=== PATIENT | male | born 1990 | race Caucasian/White ===

== ENCOUNTER 2018-12-20 09:57 | Emergency (ER) | payer SELFPAY ==
[~2018-12-20] VITALS: Ht 175.2 cm; Wt 95.3 kg
[2018-12-20] MEDS ORDERED: TOBRAMYCIN 5 ML5 M1 OPH (11:08)
== END 2018-12-20 11:21 | disposition home or self-care (01) ==
LOC: ED 09:57
DX: T15.92XA Foreign body on external eye, part unspecified, left eye, initial encounter (principal); X58.XXXA Exposure to other specified factors, initial encounter; Y93.89 Activity, other specified; Y92.89 Other specified places as the place of occurrence of the external cause; Y99.8 Other external cause status

== ENCOUNTER → 2020-04-08 | Outpatient (CLI) | payer SELFPAY ==
[~2020-04-08] MED LIST: TOBRAMYCIN 5 ML5 M1 OPH
== END | disposition home or self-care (01) ==
LOC: COVID19 12:28
PROVIDERS: ATTEND Internal Medicine
DX: Z20.828 Contact with and (suspected) exposure to other viral communicable diseases (principal)

== ENCOUNTER 2020-06-23 21:22 | Emergency (ER) | payer BC ==
[~2020-06-23] VITALS: Ht 180.3 cm; Wt 102.1 kg
[2020-06-23] MEDS ORDERED: PROVENTIL HFA6.7 GM INH (23:30)
[2020-06-23] MEDS ORDERED: PREDNISONE20 M1 PO (23:30)
== END 2020-06-23 23:37 | disposition home or self-care (01) ==
LOC: ED 21:22
DX: R51.9 Headache, unspecified (principal); J02.9 Acute pharyngitis, unspecified; R05 Cough; Z79.899 Other long term (current) drug therapy; Z20.822 Contact with and (suspected) exposure to COVID-19

== ENCOUNTER 2020-11-16 08:40 | Emergency (ER) | payer BC ==
[~2020-11-16 08:40] MED LIST changes: +PREDNISONE20 M1 PO; +PROVENTIL HFA6.7 GM INH
== END 2020-11-16 09:37 | disposition home or self-care (01) ==
LOC: ED 08:40
DX: T22.20XA Burn of second degree of shoulder and upper limb, except wrist and hand, unspecified site, initial encounter (principal); L25.9 Unspecified contact dermatitis, unspecified cause; N48.89 Other specified disorders of penis; Z20.2 Contact with and (suspected) exposure to infections with a predominantly sexual mode of transmission; Z79.899 Other long term (current) drug therapy; Z79.2 Long term (current) use of antibiotics; X08.8XXA Exposure to other specified smoke, fire and flames, initial encounter; Y93.89 Activity, other specified; Y92.89 Other specified places as the place of occurrence of the external cause; Y99.8 Other external cause status